=== PATIENT | female | born 1960 | race Caucasian/White ===

== ENCOUNTER 2018-12-28 09:46 | Day surgery (SDC) | payer BC ==
[~2018-12-28 09:46] MED LIST: Buffered Lidocaine 1% SYRIN* 1 ML/SYRINGE INTRADERM ONE; Lactated Ringers 1000 ML Bag* 1,000 ML IV SCH
[2018-12-28] MEDS ORDERED: ceFAZolin 2 GM in NS PREMIX(*) 2 GM/100 ML BAG IVPB ONE (11:16)
[2018-12-28] MEDS ORDERED: Midazolam* 1 MG/ML 5 ML VIAL (5 MG) ONE (12:25)
[2018-12-28] MEDS ORDERED: fentaNYL* 50 MCG/ML 2 ML VIAL (100 MCG VIAL) ONE (12:25)
[2018-12-28] MEDS ORDERED: Lidocaine 1% INJ* 10 MG/ML 30 ML SDV ONE (12:29)
[2018-12-28] MEDS ORDERED: Dexamethasone IV* 4 MG/ML 1 ML (4 MG) ONE (12:29)
[2018-12-28] MEDS ORDERED: Bupivacaine 0.25% SDV PF* 10 ML VIAL INJ ONE (12:29)
[2018-12-28] MEDS ORDERED: Propofol* 10 MG/ML 20 ML BTL ONE (12:49)
[2018-12-28] MEDS ORDERED: Naloxone* 0.4 MG/ML 1 ML VIAL IV PRN (13:32)
[2018-12-28 14:47] VITALS: BP 123/79
--- NOTE | 2018-12-28 21:20 | OP ---
DATE OF OPERATION: 12/28/18 - [facility] DATE OF : 62 SURGEON: Madhav Galeano DPM ANESTHESIA: MAC with local. PRE-OP DIAGNOSIS: Osteophyte of the right foot. POST-OP DIAGNOSIS: Osteophyte of the right foot. OPERATIVE PROCEDURE: Removal of osteophyte of the right foot. ESTIMATED BLOOD LOSS: Less than 10 cc. IV FLUIDS: LR 1000 cc. DRAINS: None. SPECIMEN: Osteophyte from the right hallux. DESCRIPTION OF PROCEDURE: The patient was taken to the operating room and was placed in the supine position. Time-out was called and OR team agreed. The right foot was then blocked with 5 cc of 1% lidocaine plain in a ring block fashion at the base of the hallux. The foot was then prepped and draped in a sterile manner. The right foot was exsanguinated with an Esmarch bandage and the cuff was then inflated to 250 mmHg. Attention was then paid to the right hallux at the medial aspect. X-rays in the office showed some osteophyte right at the proximal interphalangeal joint. I went ahead and made a layered incision on the medial aspect. This was followed by sharp and blunt dissection starting from the epidermis, dermis, subcutaneous tissue, and down to bone. I went ahead and localized the osteophyte with careful dissection and removed it from the side. I examined the area and there were no other pieces noted. I measured this; approximately it was about less than 1 cm. Despite it below 1 cm in size, it was found right under the proximal interphalangeal joint just as the x-ray showed. It was then passed to the nurse to send for tissue microscopy. The wound was irrigated. It was later closed in the layered anatomical fashion. The deep layers were closed with a 3-0 Vicryl and the skin was closed with 3-0 nylon. The cuff was deflated. The site was injected with 5 cc of 0.25% Marcaine plain ____ anesthesia as well as 1 cc of 4 mg of dexamethasone phosphate. This completed the procedure. The foot was then placed in a dry sterile dressing. The patient was taken to Recovery in stable condition and I will have her come back to office in 3 days. [id number]/[facility] #: [id number] [facility]ITAL[facility]
== END 2018-12-28 15:57 | disposition home or self-care (01) ==
LOC: OR 09:46
PROVIDERS: ATTEND Podiatrist
DX: M25.774 Osteophyte, right foot (principal); F17.210 Nicotine dependence, cigarettes, uncomplicated
CPT/HCPCS: 88304; 88311; J0690; J1100; J2250; J2704; J3010; J3490